=== PATIENT | female | born 2000 | race Two or more races ===

== ENCOUNTER 2018-11-13 15:10 | Emergency (ER) | payer OTHER ==
[2018-11-13] MEDS ORDERED: Lidocaine 1% INJ* 10 MG/ML 30 ML SDV INJ ONE (15:40)
[2018-11-13] MEDS ORDERED: ceFAZolin 1 GM ADVAN(*) 1 GM in NS 0.9% 50 ML* 50 ML IVPB ONE (15:40)
--- NOTE | 2018-11-13 16:21 | ED ---
Laceration/Wound HPI - HPI Summary HPI Summary: 17 year old female presents with left index finger laceration. states that her gloves into a gear and spline grinder and finger got cut by it. She has full range motion finger. No numbness or tingling. No active bleeding. The area was wrapped. Tetanus up-to-date. Has no medical conditions. Is right-handed. is a student. - History of Current Complaint Stated Complaint: LEFT HAND FINGER INJURY Time Seen by Provider: 11/13/18 15:17 Pain Intensity: 5 - Allergy/Home Medications Allergies/Adverse Reactions: Allergies Allergy/AdvReac Type Severity Reaction Status Date / Time No Known Allergies Allergy Verified 11/13/18 15:15 PMH/Surg Hx/FS Hx/Imm Hx Endocrine/Hematology History: Denies: Hx Anticoagulant Therapy Respiratory History: Denies: Hx Asthma Infectious Disease History: No Infectious Disease History: Denies: Traveled Outside the [place] in Last 30 Days - Family History Known Family History: Positive: Non-Contributory - Social History Alcohol Use: None Substance Use Type: Reports: None Smoking Status (MU): Never Smoked Tobacco Review of Systems Negative: Fever Negative: Chest Pain Negative: Shortness Of Breath Positive: Other - left index finger laceration All Other Systems Reviewed And Are Negative: Yes Physical Exam Triage Information Reviewed: Yes Vital Signs On Initial Exam: Initial Vitals Temp Pulse Resp BP Pulse Ox 98.4 F 64 15 130/78 96 11/13/18 15:13 11/13/18 15:13 11/13/18 15:13 11/13/18 15:13 11/13/18 15:13 Vital Signs Reviewed: Yes Appearance: Positive: Well-Appearing Skin: Positive: Warm, Dry, Other - 3cm by 2cm avulsion to left index finger that involves nailbed (gone). no ada involvement seen. no flap of skin Head/Face: Positive: Normal Head/Face Inspection Eyes: Positive: Normal, Conjunctiva Clear ENT: Positive: Pharynx normal Respiratory/Lung Sounds: Positive: Clear to Auscultation, Breath Sounds Present Cardiovascular: Positive: Normal, RRR Musculoskeletal: Positive: Strength/ROM Intact - left index finger, Other - good pulses Neurological: Positive: Normal Psychiatric: Positive: Normal Diagnostics - Vital Signs Vital Signs Temp Pulse Resp BP Pulse Ox 11/13/18 15:13 98.4 F 64 15 130/78 96 - Laboratory Lab Statement: Any lab studies that have been ordered have been reviewed, and results considered in the medical decision making process. - Radiology finger Radiology Interpretation Completed By: Radiologist Summary of Radiographic Findings: IMPRESSION: Soft tissue defect from amputation without definite fracture. Laceration Repair Course/Dx - Course Course Of Treatment: 17 year old female presents with left index finger laceration. states that her gloves into a gear and spline grinder and finger got cut by it. She has full range motion finger. No numbness or tingling. No active bleeding. The area was wrapped. Tetanus up-to-date. Has no medical conditions. Is right-handed. On exam has a 2 cm avulsion of left index finger with nailbed involvement. No active bleeding. Full range motion finger. X- ray shows no definitive fracture. gave ancef. place surgicel, xeroform, guaze and coband after irrigating with 500cc. told to change pressure dressing. will have continue keflex at home. gave ortho referral. patient understand and agrees with plan. - Differential Dx Differental Diagnoses: Abrasion, Avulsion, Laceration - Clinical Impression Provider Diagnoses: Avulsion of fingernail of left hand Discharge - Sign-Out/Discharge Documenting (check all that apply): Patient Departure Patient Received Moderate/Deep Sedation with Procedure: No - Discharge Plan Condition: Good Disposition: HOME Prescriptions: Cephalexin CAP* [Keflex CAP*] 500 mg PO BID #14 cap Patient Education Materials: Skin Avulsion (ED) Referrals: No Primary Care Phys,NOPCP [Primary Care Provider] - Pasha Ching MD [Medical Doctor] - Additional Instructions: Keep area in pressure dressing for 48 hours, after 48 hours check for sign of infection leaving absorbable hemostat on wound and rewrap with pressure dressing for another 24 hours Keep area covered take keflex twice a day for 7 days follow up ortho, call to schedule follow up Return to ED if develop any signs of infection such as fever, spreading redness , or pus formation or if bleed through pressure dressing or any new or worsening symptoms - Billing Disposition and Condition Condition: GOOD Disposition: Home
[2018-11-13 17:22] VITALS: BP 121/76
== END 2018-11-13 16:35 | disposition home or self-care (01) ==
LOC: ED 15:10
DX: S61.311A Laceration without foreign body of left index finger with damage to nail, initial encounter (principal); W31.89XA Contact with other specified machinery, initial encounter; Y92.9 Unspecified place or not applicable
CPT/HCPCS: 73140; 96365; 99282; J0690